=== PATIENT | male | born 1990 | race African-American/Black ===

== ENCOUNTER 2017-11-18 14:05 | Emergency (ER) | payer MEDICAID ==
[~2017-11-18] VITALS: Ht 193 cm; Wt 109.0 kg
[2017-11-18 16:57] VITALS: BP 128/79
[2017-11-18] MEDS ORDERED: KETOROLAC 60MG/2ML VIAL IM ONE (17:00)
== END 2017-11-18 18:36 | disposition left against medical advice (07) ==
LOC: ER 14:52
DX: M54.2 Cervicalgia (principal)
CPT/HCPCS: 96372; 99283; J1885